=== PATIENT | male | born 1975 | race Caucasian/White ===

== ENCOUNTER 2018-11-19 13:09 | Outpatient (REF) | payer BC, SELFPAY ==
[2018-11-19 21:59] LABS: ALT 27 U/L (12-78); AST 18 U/L (15-37); Albumin 3.8 g/dL (3.4-5.0); Alkaline Phosphatase 92 U/L (46-116); Anion Gap 9.1 mmol/L (3-11); BUN 11 mg/dL (7-18); Bilirubin, Total 0.3 mg/dL (0.2-1.0); CO2 26.9 mmol/L (21.0-32.0); CREATININE 1.12 mg/dL (0.70-1.30); Calcium 9.2 mg/dL (8.5-10.1); Chloride 105 mmol/L (98-107); Cholesterol 159 mg/dL (50-200); Glucose 97 mg/dL (70-100); HDL Cholesterol 56 mg/dL (40-60); LDL CHOLESTEROL 84 mg/dL (<100); Potassium 4.3 mmol/L (3.5-5.1); Sodium 141 mmol/L (136-145); Total Protein 7.7 g/dL (6.4-8.2); Triglyceride 150 mg/dL (30-150)
== END 2018-11-19 13:29 ==
LOC: NCHCN 13:09
PROVIDERS: PCP Internal Medicine; Visit Provider Registered Nurse
DX: I10 Essential (primary) hypertension (principal); E66.9 Obesity, unspecified
CPT/HCPCS: 80053; 80061; 83721

== ENCOUNTER 2019-12-02 12:50 | Outpatient (REF) | payer BC, SELFPAY ==
[2019-12-02 19:54] LABS: ALT 43 U/L (16-63); AST 20 U/L (15-37); Alkaline Phosphatase 88 U/L (46-116); Anion Gap 10.9 mmol/L (3-11); BUN 14 mg/dL (7-18); Bilirubin, Total 0.5 mg/dL (0.2-1.0); CO2 26.1 mmol/L (21.0-32.0); CREATININE 1.08 mg/dL (0.70-1.30); Calcium 9.3 mg/dL (8.5-10.1); Chloride 104 mmol/L (98-107); Glucose 94 mg/dL (74-106); Potassium 4.1 mmol/L (3.5-5.1); Sodium 141 mmol/L (136-145); Total Protein 7.5 g/dL (6.4-8.2)
== END 2019-12-02 13:10 ==
LOC: NCHCN 12:50
PROVIDERS: PCP Internal Medicine; Visit Provider Nurse Practitioner
DX: I10 Essential (primary) hypertension (principal)
CPT/HCPCS: 80053; 87389

== ENCOUNTER 2021-07-26 09:30 | Outpatient (REF) | payer BC, SELFPAY ==
--- OUTSIDE RECORDS SUMMARY | 2021-07-26 09:35 | XMS_ITS ---
:1975 Author Care Team Providers Name Role Phone [facility] Primary Care Provider [phone] [facility] OTHER [phone] [facility] [place] Primary Care Provider [phone] Allergies Code Code System Name Reaction Severity Status Onset 40856 RxNorm Lisinopril ? ? Active ? Medications Name Status Start Date Stop Date ? ? B Complex Active ? Not available 1 daily Centrum Active ? Not available 1 tab daily DILT-XR 180 mg capsule, extended release Active ? Not available Take 1 capsule every day by oral route. lisinopril 40 mg tablet Completed ? 10/14/19 19 Take 1 tablet every day by oral route. loratadine Active ? Not available daily losartan Active ? Not available daily Problems Name Status Onset Date Source ? Obesity Active 10/03/2018 ? Hypersomnia Active 10/03/2018 ? New Daily Persistent Headache Active 10/03/2018 ? Hypertensive Disorder Active 10/03/2018 ? 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 Obstructive Sleep Apnea Syndrome Active ? ? Procedures None recorded. Results Lab Results None recorded. Past Encounters 10/12/2020 Obstructive Sleep Apnea Syndrome Willa Pollock [employer]: [address] [place] [phone], Ph. 03/08/2020 Obstructive Sleep Apnea Syndrome Willa Pollock [employer]: [address] [place] [phone], Ph. Social History Tobacco Smoking Status Never Smoker Vaccine List None recorded. Plan of Care Reminders Provider Appointments None ? ? recorded. Lab None ? ? recorded. Referral None ? ? recorded. Procedures None ? ? recorded. Surgeries None ? ? recorded. Imaging None ? ? recorded. Vitals 10/12/2020 08:30AM Office 30 Height Weight BMI Blood Pressure 190.5 cm 190.33 kg 52.4 kg/m2 142/78 mm[Hg] 03/08/2020 09:00AM Office 30 Height Weight BMI Blood Pressure 190.5 cm 183.89 kg 50.7 kg/m2 164/78 mm[Hg] 10/14/2018 08:00AM New Patient 47 Height Weight BMI Blood Pressure 190.5 cm 169.19 kg 46.6 kg/m2 138/82 mm[Hg]
[2021-07-26 12:57] LABS: ALT 38 U/L (16-63); AST 23 U/L (15-37); Albumin 3.6 g/dL (3.4-5.0); Alkaline Phosphatase 98 U/L (46-116); Anion Gap 8.6 mmol/L (3-11); BUN 13 mg/dL (7-18); Bilirubin, Total 0.3 mg/dL (0.2-1.0); CO2 26.4 mmol/L (21.0-32.0); CREATININE 1.1 mg/dL (0.70-1.30); Calcium 8.5 mg/dL (8.5-10.1); Chloride 107 mmol/L (98-107); Glucose 113 mg/dL (74-106); Potassium 3.9 mmol/L (3.5-5.1); Sodium 142 mmol/L (136-145); Total Protein 7.1 g/dL (6.4-8.2)
== END 2021-07-26 09:31 | disposition home or self-care (01) ==
LOC: NCHCN 09:30
PROVIDERS: PCP Internal Medicine; Visit Provider Nurse Practitioner
DX: I10 Essential (primary) hypertension (principal)
CPT/HCPCS: 80053

== ENCOUNTER 2023-09-17 10:42 | Outpatient (REF) | payer BC, SELFPAY ==
[2023-09-17 16:33] LABS: Hemoglobin A1C 5.6 % (<5.7)
[2023-09-17 16:36] LABS: ALT 35 U/L (16-63); AST 23 U/L (15-37); Albumin 3.8 g/dL (3.4-5.0); Alkaline Phosphatase 80 U/L (46-116); BUN 17 mg/dL (7-18); Bilirubin, Total 0.6 mg/dL (0.2-1.0); CREATININE 1.1 mg/dL (0.70-1.30); Calcium 9.1 mg/dL (8.5-10.1); Calculated LDL 72 mg/dL (<100); Chloride 103 mmol/L (98-107); Cholesterol 142 mg/dL (<200); Estimated GFR 83.84 (mL/min/1.73m2); Glucose 94 mg/dL (74-106); HDL Cholesterol 60 mg/dL (40-60); Potassium 4.1 mmol/L (3.5-5.1); Sodium 141 mmol/L (136-145); TSH (W/Ref FT4) 0.44 uIU/mL (0.36-3.74); Total Protein 7.2 g/dL (6.4-8.2); Triglyceride 50 mg/dL (<150)
== END 2023-09-17 10:43 | disposition home or self-care (01) ==
LOC: NCHCN 10:42
PROVIDERS: PCP Family Medicine; Visit Provider Nurse Practitioner Family
DX: I10 Essential (primary) hypertension (principal); E66.01 Morbid (severe) obesity due to excess calories; Z68.42 Body mass index [BMI] 45.0-49.9, adult; Z13.220 Encounter for screening for lipoid disorders; Z13.1 Encounter for screening for diabetes mellitus
CPT/HCPCS: 80053; 80061; 83036; 84443

== ENCOUNTER 2024-01-21 17:09 | Outpatient (REF) | payer BC, SELFPAY ==
[2024-01-21 19:21] LABS: Abs Immature Grans 0.04 10^3/uL (0.0-0.06); Absolute Basophil Count 0.05 10^3/uL (0.0-0.2); Absolute Eosinophil Count 0.09 10^3/uL (0.0-0.7); Absolute Lymphocyte Count 0.73 10^3/uL (1.2-3.4); Absolute Monocyte Count 0.46 10^3/uL (0.1-0.8); Absolute Neutrophil Count 8.74 10^3/uL (1.2-6.7); Basophils % 0.5; Eosinophils % 0.9; HCT 45.4 % (40.0-50.0); HGB 14.8 g/dL (13.5-17.5); Immature Grans % 0.4; Lymphocytes % 7.2; MCH 29.7 pg (27.0-33.0); MCHC 32.6 % (32.0-36.0); MCV 91 fL (80-95); MPV 11.2 fL (8.0-11.0); Monocytes % 4.5; Neutrophils % 86.5; Platelet Count 227 10^3/uL (130-400); RBC 4.99 10^6/uL (4.36-5.78); RDW 12.5 % (11.8-14.1); RDW-SD 41.1 fL; WBC 10.11 10^3/uL (4.4-10.8)
[2024-01-21 19:30] LABS: BUN 19 mg/dL (7-18); CREATININE 1.2 mg/dL (0.70-1.30); Calcium 8.3 mg/dL (8.5-10.1); Chloride 107 mmol/L (98-107); Estimated GFR 75.53 (mL/min/1.73m2); Glucose 95 mg/dL (74-106); Magnesium 2.2 mg/dL (1.8-2.4); Potassium 4.5 mmol/L (3.5-5.1); Sodium 140 mmol/L (136-145)
== END 2024-01-21 17:10 | disposition home or self-care (01) ==
LOC: NCHCN 17:09
PROVIDERS: PCP Family Medicine; Visit Provider Nurse Practitioner Family
DX: K52.9 Noninfective gastroenteritis and colitis, unspecified (principal); I89.0 Lymphedema, not elsewhere classified
CPT/HCPCS: 80048; 83735; 85025

== ENCOUNTER 2024-09-23 09:58 | Outpatient (REF) | payer BC, SELFPAY ==
[2024-09-23 14:18] LABS: Anion Gap 9.6 mmol/L (3-11); BUN 19 mg/dL (7-18); CO2 25.4 mmol/L (21.0-32.0); CREATININE 1.3 mg/dL (0.70-1.30); Calcium 9.1 mg/dL (8.5-10.1); Chloride 104 mmol/L (98-107); Estimated GFR 68.19 (mL/min/1.73m2); Glucose 101 mg/dL (74-106); Potassium 4.3 mmol/L (3.5-5.1); Sodium 139 mmol/L (136-145)
== END 2024-09-23 09:59 | disposition home or self-care (01) ==
LOC: NCHCN 09:58
PROVIDERS: PCP Family Medicine; Visit Provider Nurse Practitioner Family
DX: I10 Essential (primary) hypertension (principal)
CPT/HCPCS: 80048